=== PATIENT | male | born 1965 | race African-American/Black ===

== ENCOUNTER 2019-03-06 21:05 | Emergency (ER) | payer OTHER ==
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
[2019-03-06 23:31] VITALS: BP 128/84; TEMP 97.8; O2SAT 100
== END 2019-03-06 21:33 | disposition home or self-care (01) ==
LOC: ER 21:05
DX: Z02.83 Encounter for blood-alcohol and blood-drug test (principal); Z72.0 Tobacco use
CPT/HCPCS: 99281